=== PATIENT | female | born 1955 | race African-American/Black ===

== ENCOUNTER 2023-08-24 19:22 | Emergency (ER) | payer OTHER, SELFPAY ==
--- NOTE | ~2023-08-24 | XR_ITS ---
EXAMINATION: XR FOOT, RIGHT CLINICAL INFORMATION: Pain in the great toe. COMPARISON: None available. TECHNIQUE: AP, lateral, and oblique views of the right foot. FINDINGS: The bones and soft tissues are normal. No fracture. Alignment is anatomic. Joint spaces are maintained. XR/XR foot RT min 3V IMPRESSION: Normal right foot.
[2023-08-24 19:24] VITALS: BP 140/74; PULSE 64; RESP 18; TEMP 37.6; O2SAT 100; BMI 28.5
--- NOTE | 2023-08-24 19:25 | ED_ITS ---
HPI - Extremity Injury (Lower) General Chief Complaint: Extremity Injury, Lower Stated Complaint: RT big toe inj Time Seen by Provider: 08/24/23 19:34 Source: patient, RN notes reviewed and old records reviewed Mode of arrival: ambulatory History of Present Illness HPI Narrative: 68yo F w/no sig PMHx presenting to the ED c/o right great toe pain s/p large wood salt and pepper shaker falling on foot around 12 noon yesterday. Has been ambulatory with pain. denies hx gout, fever, chills, numbness/tingling, injury to other area, or AC use MD complaint: foot injury Related Data Allergies Allergy/AdvReac Type Severity Reaction Status Date / Time Seasonal Allergies Allergy Nasal Verified 08/24/23 19:34 congestion Review of Systems Review of Systems: Constitutional: No Fever, No Chills ENT/Mouth: No Ear Pain, No Nasal Congestion, No sore throat, No Rhinorrhea, No Swallowing Difficulty Cardiovascular: No Chest Pain, No SOB Respiratory: No Cough, No Sputum, No Wheezing Musculoskeletal: + joint pain, No Myalgias, + Joint Swelling Skin: No Skin Lesions, No rash Neuro: No Weakness, No Numbness, No Paresthesias Yes all other systems are reviewed and are negative Constitutional: Constitutional: Reports as per HPI [facility] Past Medical History Attestation statement: The following information was validated with the patient. Source: old records reviewed Social History Social History Advance Directives: No Advance Directives Information Provided: No Physical Exam Vital Signs: Vital Signs: Last Vital Signs Temp 99.7 F 08/24/23 19:24 Pulse 64 08/24/23 19:24 Resp 18 08/24/23 19:24 BP 140/74 H 08/24/23 19:24 Pulse Ox 100 08/24/23 19:24 O2 Del Method Room Air 08/24/23 19:24 BMI result Body Mass Index 28.5 Const: General: cooperative, healthy appearing and no acute distress Orientation/consciousness: patient oriented x3 Limitations: no limitations HEENT: Head: Yes normal to inspection and Yes atraumatic Ears: hearing grossly normal bilaterally General nose exam: Normal external nose present Face and sinus: Yes normal facial exam Eyes: General: appearance normal, both eyes and all related structures EOM: EOMs intact bilaterally Neck: Neck: Yes normal visual inspection and Yes no meningeal signs Resp: Effort & Inspection: normal respiratory effort and no respiratory distress Cardio: Rate: regular rate Peripheral pulses: Peripheral pulses 2+ throughout Skin: Rashes: no rashes Wounds: no wounds Neuro: General: patient oriented x3, tone normal and no meningeal signs Cranial nerves: Yes CN's II-XII intact bilaterally Gait exam (Neuro): Normal gait present Extrem: Other: Right great toe dorsal aspect with +swelling and erythema, +ttp > MCP. No warmth, crepitus or fluctuance or induration, NV intact Course Course Course Narrative: XR foot RT min 3V IMPRESSION: Normal right foot. -DASH wrap applied Results discussed with patient including worrisome signs and symptoms and strict return precautions, and when to return to the emergency department. They verbalized understanding and feel safe for discharge at this time. Medical Decision Making Medical Decision Making MDM Narrative: 68yo F w/no sig PMHx presenting to the ED c/o right great toe pain s/p large wood salt and pepper shaker falling on foot around 12 noon yesterday. Has been ambulatory with pain. On exam vital signs stable, NAD, nontoxic appearing, physical exam as above with right great toe > MCP swelling, and erythema. Tender to palpation. Neurovascularly intact. No ecchymosis/pitting edema or crepitus. No warmth. No fluctuance or induration. Concern for fracture vs sprain vs ?gout. Low suspicion for cellulitis, septic joint/arthritis Plan: X-ray Please refer to course for remaining clinical decision making, interpretation of labs/imaging results, and discussions with consultants and/or family members. Differential Diagnosis Differential Diagnoses: The differential diagnosis associated with the presentation includes As above Independent Interpretation I performed an independent interpretation of an: Plain X-Ray Radiology Impression Discussion of test interpretation with radiology: I have reviewed the radiologist's reading. External Record Review External record reviewed: Inpatient record, Office record, Outpatient record, Prior outpatient labs, Prior outpatient radiology, Primary care record and Outside ED record Tests considered The following testing was considered but not selected: As above Prescription Management I considered prescription management with: Pain Medication and Antibiotic Discharge Plan Discharge Clinical Impression: Injury of right great toe Patient Disposition: Home, Self-Care Instructions: Crush Injury (ED) Additional Instructions: your x-ray was unremarkable Ice and elevate Wear Dash wrap as needed for stability/comfort Take Tylenol and Motrin Follow-up with her doctor If symptoms persist or worsen return to the ED Referrals: Physician,Unknown J [Physician] - 5 days
== END 2023-08-24 20:49 | disposition home or self-care (01) ==
PROVIDERS: Emergency Provider Emergency Medicine; PCP Physician Assistant
DX: S97.111A Crushing injury of right great toe, initial encounter (principal); X58.XXXA Exposure to other specified factors, initial encounter; Y93.9 Activity, unspecified; Y92.9 Unspecified place or not applicable; Y99.9 Unspecified external cause status; M79.674 Pain in right toe(s)
CPT/HCPCS: 73630; 99282; 99283

== ENCOUNTER 2023-10-17 06:39 | Emergency (ER) | payer OTHER, SELFPAY ==
--- NOTE | ~2023-10-17 | XR_ITS ---
EXAMINATION: XR WRIST, LEFT CLINICAL INFORMATION: Fall COMPARISON: None available. TECHNIQUE: PA, lateral, and oblique views of the left wrist. FINDINGS: The bones and soft tissues are normal. No fracture. Alignment is anatomic with normal joint spaces. No erosions or abnormal soft tissue calcifications. XR/XR wrist LT min 3V IMPRESSION: No fracture.
[2023-10-17 06:48] VITALS: BP 135/82; PULSE 70; RESP 16; TEMP 37; O2SAT 97; BMI 27.5
--- NOTE | 2023-10-17 07:18 | ED_ITS ---
HPI - Fall General Chief Complaint: Fall Stated Complaint: fall @ work 10/17 , hit head, wrist and knee pain Time Seen by Provider: 10/17/23 07:12 Source: patient Mode of arrival: ambulatory Limitations: no limitations History of Present Illness HPI Narrative: 68 yo female no sig PMH not on thinners here with c/o tripping on stair at work hitting head into wall then catching herself while falling did not hit head or neck on ground - no LOC but hurt L knee, foot and L hand/R hand. She has the most pain in the L hand/wrist. She is able to walk on both legs no issue. No severe headache, confusion or vomiting. She has no pain in the face but a bump on L cheek and a scrape on forehead. She has no neck pain MD complaint: fall Onset (ago): hour(s) (approx 630am) Fall from: standing Fall witnessed: no Place fall occurred: work Loss of consciousness: none Prolonged down time: no Symptoms prior to fall: none Context: tripped/slipped Location of injury: head and face Location of injury - extremities: left: knee and foot and right: hand Severity: mild Quality: dull and aching Associated symptoms (after fall): other (joint pain, swelling to face and scrape) Related Data Allergies Allergy/AdvReac Type Severity Reaction Status Date / Time Seasonal Allergies Allergy Nasal Verified 10/17/23 06:51 congestion Review of Systems Review of Systems: Constitutional : No Fever, No Chills ENT/Mouth : No Ear Pain, No Hoarseness, No sore throat Eyes: No Eye Pain, No Swelling, No Redness, No Foreign Body Cardiovascular : No Chest Pain, No SOB Respiratory : No Cough, No Dyspnea Gastrointestinal : No Nausea, No Vomiting, No Diarrhea, No abdominal Pain Genitourinary : No Dysuria, No Hematuria Musculoskeletal : positive joint pain, No Myalgias, No Joint Swelling Skin : No Skin lacerations, No rash, pos abrasion Neuro : No Weakness, No Numbness, No Loss of Consciousness, No Dizziness, No Headache Psych : No Anxiety/Panic, No Depression All other systems reviewed and are negative [facility] Past Medical History Attestation statement: The following information was validated with the patient. Social History Social History (Updated 10/17/23 @ 07:38 by Poly Saint Agatha, DO) Patient Tobacco Use Status: Never used Tobacco Advance Directives: No Advance Directives Information Provided: No Physical Exam Vital Signs: Vital Signs: Last Vital Signs Temp 98.6 F 10/17/23 06:48 Pulse 70 10/17/23 06:48 Resp 16 10/17/23 06:48 BP 135/82 10/17/23 06:48 Pulse Ox 97 10/17/23 06:48 O2 Del Method Room Air 10/17/23 06:48 BMI result Body Mass Index 27.5 Appearance: Alert. Oriented X3. No acute distress. Eyes: Pupils equal, round and reactive to light. ENT: Pharynx normal. no scalp contusions, L mild periorbital swelling with contusion to zygoma, very small abrasion to L forehead. no crepitus no issues opening mouth no bony ttp no mehta sign or raccoon eyes Neck: Normal inspection. Neck supple. no midline ttp CVS: Normal heart rate and rhythm. Pulses normal. Respiratory: No respiratory distress. Breath sounds normal. Abdomen: Soft and non-tender. Skin: Skin warm and dry. Normal skin color. Normal skin turgor. Extremities: No lower extremity edema. No calf ttp normal ROM normal gait, L hand ttp and contusion to thenar eminence, R hand mild swelling to thenar eminence but no bony ttp and no crepitus Neuro: Oriented X 3. No motor deficit. No sensory deficit. Procedures Orthopedic Splinting/Casting Injury #1: Side: left Upper Extremity Injury Location: wrist Upper Extremity Immobilizer: wrist splint Additional Comments: NV intact Medical Decision Making Medical Decision Making MDM Narrative: 68 yo female not on thinners here with c/o hitting head against wall no LOC not on thinners - doubt skull fracture or ICH, has no neck pain or midline ttp no concern for neck fracture. Has small abrasions and scrapes to L knee - doubt fracture able to walk and bear weight on knee and foot. 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 Differential Diagnosis Differential Diagnoses: The differential diagnosis associated with the presentation includes contusion, sprain, head injury - minor, hand fracture, abrasion Admission/Observation Consideration of admission/observation: Escalation of care including admission/observation considered GCS 15 stable for DC with monitoring at home has family Independent Interpretation I performed an independent interpretation of an: Plain X-Ray (no fx) Radiology Impression Discussion of test interpretation with radiology: I have reviewed the radiologist's reading. Tests considered The following testing was considered but not selected: CT scan of head but no bony crepitus no signs of skull fracture hit head against a wall not on thinners no LOC and GCS 15 no issues with bleeding doubt ICH or fracture Discharge Plan Discharge Clinical Impression: Head injury Qualifiers: Encounter type: initial encounter Qualified Code(s): S09.90XA - Unspecified injury of head, initial encounter Contusion Qualifiers: Encounter type: initial encounter Contusion area: head Contusion of head detail: eyelid Laterality: left Qualified Code(s): S00.12XA - Contusion of left eyelid and periocular area, initial encounter Hand sprain Qualifiers: Encounter type: initial encounter Laterality: left Qualified Code(s): S63.92XA - Sprain of unspecified part of left wrist and hand, initial encounter Patient Disposition: Home, Self-Care Instructions: Sprain (ED), Head Injury (ED), Contusion in Adults (ED) Additional Instructions: return for worsening pain, confusion, vomiting, severe headaches or any other concerns. rest for the next few days and avoid any activities that cause headaches. can wear splint for L wrist for the next few days. no fracture seen on xray. areas on face will swell and bruise can apply ice gently, apply neosporin to abrasion on forehead. Stand Alone Forms: Work/School Release
== END 2023-10-17 08:14 | disposition home or self-care (01) ==
PROVIDERS: Emergency Provider Emergency Medicine
DX: S09.90XA Unspecified injury of head, initial encounter (principal); S63.92XA Sprain of unspecified part of left wrist and hand, initial encounter; S00.12XA Contusion of left eyelid and periocular area, initial encounter; W01.198A Fall on same level from slipping, tripping and stumbling with subsequent striking against other object, initial encounter; Y93.9 Activity, unspecified; Y92.9 Unspecified place or not applicable; Y99.9 Unspecified external cause status; S89.92XA Unspecified injury of left lower leg, initial encounter
CPT/HCPCS: 29125; 73110; 99281; 99283; 99284